=== PATIENT | male | born 1990 | race Caucasian/White ===

== ENCOUNTER 2018-05-05 22:22 | Emergency (ER) | payer SELFPAY ==
[~2018-05-05] VITALS: Ht 180.3 cm; Wt 86.0 kg
[2018-05-06] MEDS ORDERED: MORPHINE SULFATE 4 MG/ML CPJ (NOT FOR IM USE) IV ONE (06:45)
[2018-05-06] MEDS ORDERED: KETOROLAC 30MG/ML VIAL IV ONE (06:45)
[2018-05-06] MEDS ORDERED: KETOROLAC 15MG/ML VIAL IV ONE (07:00)
[2018-05-06 09:19] VITALS: BP 118/63
== END 2018-05-06 09:23 | disposition home or self-care (01) ==
LOC: ER 22:22
DX: S53.491A Other sprain of right elbow, initial encounter (principal); F12.10 Cannabis abuse, uncomplicated; R03.0 Elevated blood-pressure reading, without diagnosis of hypertension; W01.0XXA Fall on same level from slipping, tripping and stumbling without subsequent striking against object, initial encounter; Y93.66 Activity, soccer; Y92.89 Other specified places as the place of occurrence of the external cause
CPT/HCPCS: 73060; 73080; 96374; 96375; 99284; J1885; J2270